=== PATIENT | female | born 1950 | race Hispanic/Latino ===

== ENCOUNTER 2017-01-31 06:12 | Day surgery (SDC) | payer MEDICARE ==
[~2017-01-31 06:12] MED LIST: MARCAINE-EPI 0.25%-1:200,000 INFILTRATI ONE
[2017-01-31] MEDS ORDERED: NACL BACTERIOSTATIC INFILTRATI ONE (06:59)
[2017-01-31] MEDS ORDERED: DILAUDID IV PRN (07:03)
[2017-01-31] MEDS ORDERED: SUBLIMAZE IV PRN (07:03)
--- NOTE | 2017-01-31 07:04 | Anesthesia Consultation ---
Anesthesia Consult and Med Hx Date of service: 01/31/17 - Airway Anesthetic Teeth Evaluation: Good ROM Head & Neck: Adequate Mental/Hyoid Distance: Inadequate Mallampati Class: Class III Intubation Access Assessment: Possibly Difficult - Pulmonary Exam CTA: Yes - Cardiac Exam Cardiac Exam: RRR - Pre-Operative Health Status ASA Pre-Surgery Classification: ASA3 Proposed Anesthetic Plan: General Nerve Block: IS - Cardiovascular System Hx Hypertension: Yes (LVEF 65%) - Central Nervous System Hx Neuromuscular Disorder: Yes (RA on steroids) - Endocrine Hx Non-Insulin Dependent Diabetes: Yes - Additional Comments Anesthesia Medical History Comments: hx pancreatitis
[2017-01-31] MEDS ORDERED: MARCAINE-EPI 0.5%-1:200,000 INFILTRATI ONE ×2 (07:18→07:49)
[2017-01-31] MEDS ORDERED: CLONIDINE 1,000 MCG/10 ML VIAL EP ONE (07:19)
[2017-01-31] MEDS ORDERED: XYLOCAINE 1% 20 mL ONE (07:19)
[2017-01-31] MEDS ORDERED: DECADRON ONE ×2 (07:20→09:44)
[2017-01-31] MEDS ORDERED: ZOFRAN IV PRN (07:30)
[2017-01-31] MEDS ORDERED: NEO SYNEPHRINE/NS Syringe(OR USE) IV ONE (07:30)
[2017-01-31] MEDS ORDERED: SUBLIMAZE IV ONE (07:30)
[2017-01-31] MEDS ORDERED: DIPRIVAN 10 MG/ML IV ONE (07:31)
--- NOTE | 2017-01-31 07:36 | Anesthesia Day of Surgery ---
Anesthesia Day of Surgery - Day of Surgery Patient Examined: Yes Patient H&P Reviewed: Yes Patient is NPO: Yes
[2017-01-31] MEDS ORDERED: ADRENALIN ONE (07:49)
[2017-01-31] MEDS ORDERED: MARCAINE-EPI 0.25%-1:200,000 INFILTRATI ONE ×2 (07:49→12:09)
[2017-01-31] MEDS ORDERED: PEPCID IV NR (08:00)
[2017-01-31] MEDS ORDERED: VERSED IV NR (08:00)
[2017-01-31] MEDS ORDERED: NACL 0.9% 1000 ML 1,000 ML IV SCH (08:00)
[2017-01-31] MEDS ORDERED: SUBLIMAZE ONE (08:40)
[2017-01-31] MEDS ORDERED: ARTIFICIAL TEARS OPHTH OINT ONE (09:18)
[2017-01-31] MEDS ORDERED: ZEMURON IV ONE (09:44)
[2017-01-31] MEDS ORDERED: XYLOCAINE MPF 2% ONE (09:44)
[2017-01-31] MEDS ORDERED: ZOFRAN ONE (10:02)
[2017-01-31] MEDS ORDERED: TORADOL ONE (10:02)
[2017-01-31] MEDS ORDERED: ADRENALIN IV ONE (10:08)
[2017-01-31] MEDS ORDERED: ePHEDrine SULFATE ONE (10:20)
[2017-01-31] MEDS ORDERED: ANCEF/STERILE WATER 2 GM/20 ML IV NR (11:00)
[2017-01-31] MEDS ORDERED: NACL 0.9% 1000 ML 1,000 ML ONE (11:26)
--- NOTE | 2017-01-31 12:56 | Post Anesthesia Evaluation ---
- Post Anesthesia Evaluation Patient Participated: Yes Airway Patent: Yes Stable Respiratory Function: Yes Nausea/Vomiting: No Temp > 96.8F: Yes Pain Manageable: Yes (comfortable) Adequeate Hydration: Yes Anesthesia Complications: No Block Receding Appropriately: Not Applicable Patient on Ventilator: No
--- NOTE | 2017-01-31 14:07 | Operative Report ---
PREOPERATIVE DIAGNOSIS: Left shoulder with complex rotator cuff tear by tendonitis impingement bursitis. POSTOPERATIVE DIAGNOSES: 1. Left shoulder with complex retracted subscapularis tear. 2. Biceps tendonitis. 3. Partial thickness tear, supraspinatus, infraspinatus. 4. Marked subacromial bursitis and impingement. 5. Extensive disease, labral fraying. 6. Synovitis. 7. Mild to moderate glenohumeral arthritis. PROCEDURE PERFORMED: 1. Left shoulder arthroscopy with arthroscopic rotator cuff repair -- retracted subscapularis -- complex. 2. Arthroscopic biceps tenodesis. 3. Arthroscopic subacromial bursectomy decompression. 4. Arthroscopic extensive debridement of labrum, synovectomy and partial thickness supraspinatus infraspinatus tears. SURGEON: Ken Vaca M.D. [employer]: Alireza Zheng CSA. ANESTHESIA: General plus scalene block. ESTIMATED BLOOD LOSS: Minimal. COMPLICATIONS: None. DESCRIPTION OF PROCEDURE: The patient underwent successful anesthesia. Exam shows good range of motion. She was carefully positioned in the beach chair position, prepped and draped in usual fashion. Antibiotics were preadministered. Arthroscopy was carried out. Standard posterior portal entry was made through the triangular space below the biceps as the subscapula is absent. Intraoperative examination demonstrated the findings noted. Mild to early moderate glenohumeral arthritis noted. Super dense space demonstrates partial thickness tearing approximately 40 to near 50%. Extensive global labral fraying and synovitis was noted and this was thoroughly debrided. The biceps demonstrated tendonitis and with significant hyperemia. 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 Through the antral and the biceps tendon portal meticulous debridement of this was carried out, mobilization of the subscapularis is a very complex procedure. For locking #2 FiberWire sutures were then placed to allow for mobilization of the subscapularis. The ____ on the tuberosity was appropriately prepared. The repair was secured with 2 SwiveLock anchors through which the 4 sutures passed with excellent water tight stable repair achieved throughout range of motion including full external rotation. The biceps tenotomy already been performed and the biceps secured. The ____ and biceps tenodesis carried out with the SwiveLock as well. After thorough examination of the shoulder intra-articularly the arthroscope was placed in subacromial space. Noted to have a type 2 acromion with the meta acromion noted and a marked subacromial bursitis, limited sparing decompression was performed. Bursectomy was performed. As noted, there was marked attenuation of the rotator cuff, but no distinct full thickness tear is that required any type of additional repair. At this point in time, the arthroscopic instruments were all removed. Ports were closed with nylon sutures, sterile dressing applied. He was taken to the recovery room in satisfactory condition having tolerated the procedure well. JOB# [id number] [place]/REYNALDO
[2017-01-31 14:16] VITALS: BP 142/78
== END 2017-01-31 14:40 | disposition home or self-care (01) ==
LOC: OR 06:12
PROVIDERS: ATTEND Orthopaedic Surgery
DX: S46.012A Strain of muscle(s) and tendon(s) of the rotator cuff of left shoulder, initial encounter (principal); M75.22 Bicipital tendinitis, left shoulder; M75.52 Bursitis of left shoulder; M75.42 Impingement syndrome of left shoulder; M65.822 Other synovitis and tenosynovitis, left upper arm; M24.112 Other articular cartilage disorders, left shoulder; I10 Essential (primary) hypertension; M06.9 Rheumatoid arthritis, unspecified; E11.9 Type 2 diabetes mellitus without complications; K21.9 Gastro-esophageal reflux disease without esophagitis; Z87.19 Personal history of other diseases of the digestive system; Z86.73 Personal history of transient ischemic attack (TIA), and cerebral infarction without residual deficits; Z83.3 Family history of diabetes mellitus; Z82.49 Family history of ischemic heart disease and other diseases of the circulatory system; Z82.61 Family history of arthritis; Z84.2 Family history of other diseases of the genitourinary system; X58.XXXA Exposure to other specified factors, initial encounter
CPT/HCPCS: 29823; 29826; 29827; 29828; 36415; 82962; 84132; J0171; J0735; J1100; J1170; J1885; J2250; J2405; J2704; J3010; J7030; C1713; J2370